=== PATIENT | male | born 1945 | race Caucasian/White ===

== ENCOUNTER 2023-10-07 10:40 | Day surgery (SDC) | payer MEDICARE ==
[2023-10-03 12:18] LABS: BASOPHILS # (AUTO) 0.1 X10'3 (0-0.2); BASOPHILS % (AUTO) 0.1 % (0-1); EOSINOPHILS # (AUTO) 0.2 X10'3 (0-0.9); EOSINOPHILS % (AUTO) 0.2 % (0-6); NEUTROPHILS % (AUTO) 6.8 % (42-75); RED CELL DISTRIBUTION WIDTH 16.4 % (11.5-14.5)
[2023-10-03 12:21] LABS: HEMATOCRIT 42.2 % (42.0-52.0); LYMPHOCYTES # (AUTO) 73.1 X10'3 (1.1-4.8); LYMPHOCYTES % (AUTO) 92.4 % (21-51); MEAN CORPUSCULAR HEMOGLOBIN 25.5 PG (27.0-31.0); MEAN CORPUSCULAR HGB CONC 30.8 g/dL (33.0-36.5); MEAN CORPUSCULAR VOLUME 82.9 FL (78-98); MEAN PLATELET VOLUME 7.7 FL (7.4-10.4); MONOCYTES # (AUTO) 0.4 X10'3 (0-0.9); MONOCYTES % (AUTO) 0.5 % (2-12); NEUTROPHILS # (AUTO) 5.4 X10'3 (1.8-7.7); PLATELET COUNT 110 X10'3 (140-440); RED BLOOD COUNT 5.08 X10'6 (4.70-6.10)
[2023-10-03 12:25] LABS: ALBUMIN 3.9 G/DL (3.4-5.0); ANION GAP 7 (8-16); APTT 31 SECONDS (22-32); BLOOD UREA NITROGEN 29 MG/DL (7-18); BUN/CREATININE RATIO 18.1 (10.0-20.0); CHLORIDE 105 MMOL/L (99-107); GLUCOSE 119 MG/DL (70-104); INR 1.2 INR; POTASSIUM 4.5 MMOL/L (3.5-5.1); SODIUM 140 MMOL/L (135-145); TOTAL CARBON DIOXIDE 28.3 MMOL/L (24-32); eGFR 42 ML/MIN
[2023-10-03 13:34] LABS: WHITE BLOOD COUNT 79.1 X10'3 (4.5-11.0)
[2023-10-03 14:33] LABS: ANISOCYTOSIS 1+; PLATELET ESTIMATE DECREASED; TOTAL CELLS COUNTED 100
[~2023-10-07] VITALS: Ht 167.6 cm; Wt 88.8 kg
[2023-10-07] VITALS (10 sets, daily range): BP systolic 115–152; BP diastolic 62–93; PULSE 63–86; RESP 12–16; TEMP 98; O2SAT 95–98
[2023-10-07] MEDS ORDERED: normal saline 1000ml 1,000 ML IV SCH (11:00)
[2023-10-07] MEDS ORDERED: OMEP40CA21 PO (12:29)
[2023-10-07] MEDS ORDERED: SIMV-45 PO (12:29)
[2023-10-07] MEDS ORDERED: APIX5TAB3 PO (12:29)
[2023-10-07] MEDS ORDERED: LOSA1TAB36 PO (12:29)
[2023-10-07] MEDS ORDERED: SOTA80TA73 PO (12:29)
[2023-10-07] MEDS ORDERED: TADA20TA43 PO (12:29)
[2023-10-07] MEDS ORDERED: METF-900 PO (12:29)
[2023-10-07] MEDS: MIDAZolam 1mg/ml 10ml vial IV ONE (14:01)
[2023-10-07] MEDS: fentaNYL/PF 50MCG/1 ML 2ML syringe IV ONE (14:01)
== END 2023-10-07 15:15 | disposition home or self-care (01) ==
LOC: SSTAY O 10:40
PROVIDERS: ATTEND Student in an Organized Health Care Education/Training Program
DX: I48.91 Unspecified atrial fibrillation (principal); I49.1 Atrial premature depolarization; I45.10 Unspecified right bundle-branch block; I10 Essential (primary) hypertension; E11.9 Type 2 diabetes mellitus without complications; E78.00 Pure hypercholesterolemia, unspecified; Z79.84 Long term (current) use of oral hypoglycemic drugs; Z79.01 Long term (current) use of anticoagulants; Z79.899 Other long term (current) drug therapy
CPT/HCPCS: 80048; 85025; 85610; 85730; 92960; 93005; J2250; J3010; J7030; 85007

== ENCOUNTER 2023-12-21 18:32 | Inpatient (IN) | payer MEDICARE ==
[~2023-12-21] VITALS: Ht 167.6 cm; Wt 87.8 kg
[~2023-12-21 18:32] MED LIST: APIX5TAB3 PO; LOSA1TAB36 PO; METF-900 PO; OMEP40CA21 PO; SIMV-45 PO; SOTA80TA73 PO; TADA20TA43 PO
[2023-12-21 19:29] LABS: BASOPHILS # (AUTO) 0.1 X10'3 (0-0.2); EOSINOPHILS # (AUTO) 0.1 X10'3 (0-0.9); HEMOGLOBIN 11.2 g/dl (14.0-17.9); LYMPHOCYTES # (AUTO) 55.1 X10'3 (1.1-4.8); MEAN PLATELET VOLUME 7.4 FL (7.4-10.4); NEUTROPHILS # (AUTO) 3.3 X10'3 (1.8-7.7)
[2023-12-21 19:31] LABS: BASOPHILS % (AUTO) 0.1 % (0-1); EOSINOPHILS % (AUTO) 0.1 % (0-6); HEMATOCRIT 36.1 % (42.0-52.0); LYMPHOCYTES % (AUTO) 92.3 % (21-51); MEAN CORPUSCULAR HEMOGLOBIN 25.3 PG (27.0-31.0); MEAN CORPUSCULAR VOLUME 81.8 FL (78-98); MONOCYTES # (AUTO) 1.2 X10'3 (0-0.9); NEUTROPHILS % (AUTO) 5.5 % (42-75); PLATELET COUNT 89 X10'3 (140-440); RED BLOOD COUNT 4.41 X10'6 (4.70-6.10)
[2023-12-21 19:37] LABS: APTT 29 SECONDS (22-32); INR 1.1 INR; PROTHROMBIN TIME 11.6 SECONDS (9.0-12.0)
[2023-12-21 19:42] LABS: WHITE BLOOD COUNT 59.7 X10'3 (4.5-11.0)
[2023-12-21 19:47] LABS: ALBUMIN 3.4 G/DL (3.4-5.0); ANION GAP 6 (8-16); BLOOD UREA NITROGEN 25 MG/DL (7-18); BUN/CREATININE RATIO 17.4 (10.0-20.0); CALCIUM 8.8 MG/DL (8.5-10.1); CHLORIDE 105 MMOL/L (99-107); CREATININE 1.44 MG/DL (0.60-1.10); ETHANOL < 10 MG/DL (<10); GLUCOSE 203 MG/DL (70-104); LIPASE 71 U/L (16-77); POTASSIUM 3.8 MMOL/L (3.5-5.1); PRO BRAIN NATRIURETIC PEPTIDE 1027 PG/ML (0-450); SODIUM 138 MMOL/L (135-145); TOTAL CARBON DIOXIDE 26.6 MMOL/L (24-32); eCRCL 37 ML/MIN; eGFR 47 ML/MIN
[2023-12-21 20:38] LABS: BILIRUBIN,URINE NEGATIVE (Neg); CLARITY,URINE CLEAR (Clear); COLOR,URINE YELLOW (Yellow); GLUCOSE, URINE NEGATIVE (Neg); KETONES,URINE NEGATIVE (Neg); LEUKOCYTE ESTERASE ,URINE NEGATIVE (Neg); NITRITES, URINE NEGATIVE (Neg); OCCULT BLOOD,URINE NEGATIVE (Neg); PH,URINE 5.5 (4.8-8.0); PROTEIN,URINE NEGATIVE (Neg); UROBILINOGEN,URINE 0.2 E.U/dL (0.2-1.0)
[2023-12-21 20:47] LABS: URINE AMPHETAMINE SCREEN NEGATIVE (Neg); URINE BARBITUATE SCREEN NEGATIVE (Neg); URINE BENZODIAZEPINES SCREEN NEGATIVE (Neg); URINE CANNABINOID SCREEN NEGATIVE (Neg); URINE COCAINE SCREEN NEGATIVE (Neg); URINE METHADONE SCREEN NEGATIVE (Neg); URINE OPIATE SCREEN NEGATIVE (Neg); URINE PHENCYCLIDINE SCREEN NEGATIVE (Neg)
[2023-12-21 20:48] LABS: UA COLLECTION TYPE CLN CATCH MIDSTREAM
[2023-12-21 21:58] LABS: TOTAL CELLS COUNTED 100
[2023-12-21 22:03] LABS: ANISOCYTOSIS 1+; BURR CELLS FEW; ELLIPTOCYTES 1+; PLATELET ESTIMATE DECREASED
[2023-12-21 22:05] LABS: SMUDGE CELLS 4+
[2023-12-21] MEDS: diatr meglu/diatrizoate 30ml oral sol.-(3 dose) bottle PO SCH (22:16)
[2023-12-21] MEDS: normal saline 1000ML IV soln IVB ONE (22:20)
[2023-12-21] MEDS ORDERED: magnesium Cl slow-release 64mg tablet PO PRN (23:05)
[2023-12-21] MEDS ORDERED: potassium Cl 20 mEq SR tablet PO PRN ×2 (23:05)
[2023-12-21] MEDS ORDERED: potassium Cl 40MEQ/1/2NS 520ml 520 ML IV PRN (23:05)
[2023-12-21] MEDS ORDERED: ondansetron/PF 4mg/2ml inj IV PRN (23:05)
[2023-12-21] MEDS ORDERED: acetaminophen 325mg tablet PO PRN (23:05)
[2023-12-21] MEDS ORDERED: magnesium sulf-water 4G/100mL 100 ML IV PRN (23:05)
[2023-12-21] MEDS ORDERED: magnesium hydroxide 30ml (MOM) UD suspension PO PRN (23:05)
[2023-12-21] MEDS ORDERED: magnesium sulf-water 2g/50mL 50 ML IV PRN (23:05)
[2023-12-21] MEDS ORDERED: mag hydrox/Alum hydrox/simeth 30ml oral suspension PO PRN (23:05)
[2023-12-21] MEDS ORDERED: pantoprazole 40mg IV 80 MG in normal saline 100ml IV soln 100 ML IV ONE (23:40)
[2023-12-21 23:58] LABS: MAGNESIUM 2.1 MG/DL (1.5-2.4)
[2023-12-22 00:05] LABS: HEMOGLOBIN A1C 5.8 % (4.5-6.2)
[2023-12-22] MEDS: pantoprazole 40 MG vial IV ONE (00:08)
[2023-12-22] MEDS ORDERED: dextrose 50%-water 50ml dispensing syringe IV PRN ×4 (00:15→00:35)
[2023-12-22] MEDS ORDERED: glucagon, human recombinant 1mg kit SUBCUT PRN ×2 (00:15→00:35)
[2023-12-22] MEDS ORDERED: DEXTROSE 15 GM of carb/4 tabs (each vial/BOTTLE has 4 tablets) PO PRN ×4 (00:15→00:35)
[2023-12-22] MEDS ORDERED: iohexol 300mg/ml 100ml inj. ONE (02:06)
[2023-12-22 03:44] LABS: CHOL/HDL RATIO 3.7 (0.00-4.99); CHOLESTEROL 115 MG/DL (0-200); HDL CHOLESTEROL 31 MG/DL (35-60); LDL CHOLESTEROL 65 MG/DL (50-100); MAGNESIUM 2.1 MG/DL (1.5-2.4); POTASSIUM 3.8 MMOL/L (3.5-5.1); TRIGLYCERIDES 117 MG/DL (20-135)
[2023-12-22] MEDS ORDERED: INSULIN LISPRO 100 UNIT/ML INSULN.PEN MULTI-DOSE SQ SCH (07:00)
[2023-12-22] MEDS: INSULIN LISPRO 100 UNIT/ML INSULN.PEN MULTI-DOSE SQ SCH (07:00)
[2023-12-22] MEDS: K and/or MAG REPLACEMENT MC SCH (07:29)
[2023-12-22] MEDS: docusate sod 100mg capsule PO SCH (08:00)
[2023-12-22] MEDS: pantoprazole 40 MG vial IV SCH (08:14)
[2023-12-22 10:00] VITALS: BP 168/69; PULSE 62; RESP 10; TEMP 98.5; O2SAT 95
[2023-12-22 15:00] VITALS: BP 129/66; PULSE 64; RESP 10; TEMP 97.8; O2SAT 95
[2023-12-22 18:00] VITALS: BP 159/70; PULSE 57; RESP 17; TEMP 97.8; O2SAT 94
[2023-12-22 20:00] VITALS: RESP 18
[2023-12-23 02:00] VITALS: BP 148/73; PULSE 64; RESP 16; TEMP 97.6; O2SAT 93
[2023-12-23 06:00] VITALS: BP 169/62; PULSE 62; RESP 16; TEMP 97.5; O2SAT 93
[2023-12-23 07:31] LABS: POTASSIUM 4.1 MMOL/L (3.5-5.1)
[2023-12-23 08:00] VITALS: RESP 16; O2SAT 93
[2023-12-23] MEDS: simvastatin 20mg tablet ONE (10:14)
[2023-12-23] MEDS: sotalol 80mg tablet ONE (10:14)
[2023-12-23] MEDS: HYDROchlorothiazide 12.5mg capsule ONE (10:14)
[2023-12-23] MEDS: apixaban 5mg tablet ONE (10:15)
[2023-12-23] MEDS: losartan 50mg tablet ONE (10:16)
[2023-12-23 11:00] VITALS: BP 153/66; PULSE 69; RESP 15; TEMP 97.4; O2SAT 95
[2023-12-23] MEDS: losartan 50mg tablet PO ONE (13:04)
[2023-12-23] MEDS: HYDROchlorothiazide 12.5mg capsule PO ONE (13:04)
[2023-12-23 15:00] VITALS: BP 129/64; PULSE 63; RESP 17; TEMP 97.1; O2SAT 96
[2023-12-23] MEDS ORDERED: sotalol 80mg tablet PO SCH (20:00)
[2023-12-23] MEDS ORDERED: apixaban 5mg tablet PO SCH (20:00)
[2023-12-24] MEDS ORDERED: pantoprazole 40mg Tablet.DR PO SCH (08:00)
[2023-12-24] MEDS ORDERED: HYDROchlorothiazide 12.5mg capsule PO SCH (08:00)
[2023-12-24] MEDS ORDERED: simvastatin 20mg tablet PO SCH (08:00)
[2023-12-24] MEDS ORDERED: losartan 50mg tablet PO SCH (08:00)
== END 2023-12-23 17:28 | disposition home or self-care (01) | DRG 311 ==
LOC: ER 18:33 → ED HOLD 23:16 → EDBEDREQ 12-22 09:10 → PCU 3S 12-22 10:00
PROVIDERS: ADMIT Internal Medicine Critical Care Medicine; ATTEND Family Medicine
PROC: BW211ZZ Computerized Tomography (CT Scan) of Abdomen and Pelvis using Low Osmolar Contrast (ICD-10-PCS; principal; 2023-12-22)
DX: I20.9 Angina pectoris, unspecified (principal); I48.91 Unspecified atrial fibrillation; K21.9 Gastro-esophageal reflux disease without esophagitis; D72.823 Leukemoid reaction; D69.6 Thrombocytopenia, unspecified; E11.22 Type 2 diabetes mellitus with diabetic chronic kidney disease; N18.32 Chronic kidney disease, stage 3b; I12.9 Hypertensive chronic kidney disease with stage 1 through stage 4 chronic kidney disease, or unspecified chronic kidney disease; Z79.01 Long term (current) use of anticoagulants; Z79.899 Other long term (current) drug therapy; Z79.84 Long term (current) use of oral hypoglycemic drugs; Z85.46 Personal history of malignant neoplasm of prostate; Z87.891 Personal history of nicotine dependence
CPT/HCPCS: 36415; 71045; 74177; 80048; 80061; 80305; 80320; 81003; 82948; 83036; 83690; 83735; 83880; 84132; 84484; 85007; 85025; 85610; 85730; 87081; 93005; 93306; 99285; G0378; J1815; J2470; J7030; Q9963; Q9967